=== PATIENT | female | born 1955 | race Caucasian/White ===

== ENCOUNTER 2022-03-24 17:01 | Inpatient (IN) | payer MEDICARE ==
[~2022-03-24] VITALS: Ht 165.1 cm; Wt 92.1 kg
[~2022-03-24 17:01] MED LIST: ACETAMINOPHEN500 M5 PO; ALDACTONE25 MG PO; AMBIEN10 M1 PO; CLONAZEPAM1 MG PO; COLCRYS0.6 M1 PO; GABAPENTIN800 MG PO; GOOD NEIGHBOR PH5 MG PO; KLOR-CON M2020 ME1 PO; LASIX40 MG PO; LEVOTHYROXINE200 MC3 PO; LEXAPRO10 MG PO; MASON NATURAL325 MG PO; MELOXICAM15 MG PO; MIRTAZAPINE15 M2 PO; NEXIUM20 M1 PO; PANTOPRAZOLE SO20 MG PO; ROPINIROLE HYD0.5 MG PO; TOPROL XL25 MG PO; TORSEMIDE20 MG PO; VITAMIN D3125 MCG PO
[2022-03-24 17:51] LABS: HEMATOCRIT 32.7 % (37.0-47.0); MEAN CELL VOLUME 110.8 fl (81.0-99.0); MEAN CORPUSCULAR HGB 34.9 pg (27.0-31.0); MEAN CORPUSCULAR HGB CONC 31.5 g/dl (33.0-37.0); MEAN PLATELET VOLUME 12.6 fl (9.6-12.3); NUCLEATED RED BLOOD CELL 0.3 10*3/uL (0.0-0.0); NUCLEATED RED BLOOD CELL 5.1 % (0.0-0.0); PLATELET COUNT AUTOMATED 185 10*3/uL (130-400); RED BLOOD COUNT 2.95 10*6/uL (4.10-5.10); RED CELL DISTRI WIDTH 18.4 % (0-14.5); WHITE BLOOD COUNT 5.3 10*3/uL (4.8-10.8)
[2022-03-24 18:09] LABS: CREATININE 2.26 mg/dL (0.55-1.02); POTASSIUM 5.2 mmol/L (3.5-5.1); TOTAL PROTEIN 8.2 gm/dL (6.4-8.2)
[2022-03-24 18:21] LABS: MANUAL DIFF REFLEX YES
[2022-03-24 18:36] LABS: PLATELET SUFFICIENCY NORMAL (NORMAL); TOTAL CELLS COUNTED 100 #CELLS
[2022-03-24 19:08] LABS: BILIRUBIN Negative (Negative); BLOOD 2+ (Negative); CLARITY Cloudy (Clear); COLOR Yellow (Yellow); GLUCOSE Negative (Negative); KETONE Negative (Negative); LEUKO ESTERASE 2+ (Negative); NITRITE Positive (Negative); PH 5.5 (4.5-8.0)
[2022-03-24 19:28] LABS: BACTERIA 4+; RBC 41-50 rbc/hpf (0-2); WBC 31-40 wbc/hpf (0-5)
[2022-03-24 20:02] VITALS: BP 129/72
[2022-03-25] VITALS (9 sets, daily range): BP systolic 102–165; BP diastolic 45–102
[2022-03-25 05:47] LABS: CREATININE 1.85 mg/dL (0.55-1.02)
[2022-03-25 06:01] LABS: FREE T4 0.47 ng/dl (0.76-1.46); TOTAL PROTEIN 7.3 gm/dL (6.4-8.2)
[2022-03-25 06:04] LABS: ARTERIAL BLOOD GAS PO2 254.7 (80-90)
[2022-03-25 06:18] LABS: ABG BASE EXCESS -12.7 mmol/L (-2.0-2.0); ARTERIAL BLOOD GAS PH 7.186 (7.35-7.45)
[2022-03-25 06:28] LABS: HEMATOCRIT 27.6 % (37.0-47.0); MEAN CELL VOLUME 111.3 fl (81.0-99.0); MEAN CORPUSCULAR HGB 38.3 pg (27.0-31.0); MEAN CORPUSCULAR HGB CONC 34.4 g/dl (33.0-37.0); MEAN PLATELET VOLUME 12.8 fl (9.6-12.3); NUCLEATED RED BLOOD CELL 0.3 10*3/uL (0.0-0.0); NUCLEATED RED BLOOD CELL 4.3 % (0.0-0.0); PLATELET COUNT AUTOMATED 172 10*3/uL (130-400); RED BLOOD COUNT 2.48 10*6/uL (4.10-5.10); RED CELL DISTRI WIDTH 18.3 % (0-14.5); WHITE BLOOD COUNT 6.1 10*3/uL (4.8-10.8)
[2022-03-25 06:51] LABS: MANUAL DIFF REFLEX YES
[2022-03-25 07:25] LABS: ATYPICAL LYMPHS 2 % (0-0); BURR CELLS FEW; OVALOCYTES FEW; POLYCHROMASIA SLIGHT; ROULEAUX SLIGHT; TOTAL CELLS COUNTED 100 #CELLS
[2022-03-25 07:26] LABS: DOHLE BODIES FEW; PLATELET SUFFICIENCY NORMAL (NORMAL); TOXIC GRANULATION SLIGHT
[2022-03-25 09:38] LABS: ACT PARTIAL THROMBO TIME 24.2 SECONDS (20.0-32.1); INTERNATIONAL NORM RATIO 1.4 (2.0-3.5)
[2022-03-25] MEDS ORDERED: ESOMEPRAZOLE MA20 MG PO (11:06)
[2022-03-25] MEDS ORDERED: CLONAZEPAM1 MG PO (11:06)
[2022-03-25] MEDS ORDERED: ZOLPIDEM10 MG PO (11:07)
[2022-03-25] MEDS ORDERED: LEVOTHYROXINE200 MC2 PO (11:07)
[2022-03-25] MEDS ORDERED: FAMOTIDINE20 M1 PO (11:08)
[2022-03-25] MEDS ORDERED: DICLOFENAC SOD100 G1 T (11:09)
[2022-03-25] MEDS ORDERED: MIRTAZAPINE15 M2 PO (11:09)
[2022-03-25] MEDS ORDERED: MELOXICAM15 MG PO (11:09)
[2022-03-25] MEDS ORDERED: ROPINIROLE HYD0.5 MG PO (11:10)
[2022-03-25] MEDS ORDERED: METOPROLOL SUCC25 M2 PO (11:12)
[2022-03-25] MEDS ORDERED: GABAPENTIN800 MG PO (11:13)
[2022-03-25 13:53] LABS: ARTERIAL BLOOD GAS PH 7.358 (7.35-7.45); ARTERIAL BLOOD GAS PO2 78.5 (80-90)
[2022-03-25 13:54] LABS: ABG BASE EXCESS -10.7 mmol/L (-2.0-2.0)
[2022-03-25 16:17] LABS: CREATININE 1.66 mg/dL (0.55-1.02)
[2022-03-26] VITALS: BP 119/60
[2022-03-26 04:00] VITALS: BP 118/43
[2022-03-26 08:00] VITALS: BP 128/53
[2022-03-26 08:23] LABS: ARTERIAL BLOOD GAS PH 7.416 (7.35-7.45); ARTERIAL BLOOD GAS PO2 68.4 (80-90)
[2022-03-26 08:25] LABS: ABG BASE EXCESS -6.1 mmol/L (-2.0-2.0)
[2022-03-26 08:29] LABS: HEMATOCRIT 24.2 % (37.0-47.0); MANUAL DIFF REFLEX YES; MEAN CELL VOLUME 112.6 fl (81.0-99.0); MEAN CORPUSCULAR HGB 37.2 pg (27.0-31.0); MEAN CORPUSCULAR HGB CONC 33.1 g/dl (33.0-37.0); MEAN PLATELET VOLUME 11.8 fl (9.6-12.3); NUCLEATED RED BLOOD CELL 0.2 10*3/uL (0.0-0.0); NUCLEATED RED BLOOD CELL 4.6 % (0.0-0.0); PLATELET COUNT AUTOMATED 146 10*3/uL (130-400); RED BLOOD COUNT 2.15 10*6/uL (4.10-5.10); RED CELL DISTRI WIDTH 19.9 % (0-14.5); WHITE BLOOD COUNT 4.4 10*3/uL (4.8-10.8)
[2022-03-26 08:53] LABS: ATYPICAL LYMPHS 1 % (0-0); CREATININE 1.37 mg/dL (0.55-1.02); PLATELET SUFFICIENCY NORMAL (NORMAL); POLYCHROMASIA SLIGHT; POTASSIUM 3.6 mmol/L (3.5-5.1); ROULEAUX SLIGHT; SCHISTOCYTES FEW; TOTAL CELLS COUNTED 100 #CELLS; TOTAL PROTEIN 6.1 gm/dL (6.4-8.2); TOXIC GRANULATION SLIGHT
[2022-03-26 10:06] LABS: HBSAG Negative (Negative); HEP B CORE AB, IGM Negative (Negative); HEPATITIS C ANTIBODY <0.1 (0.0-0.9)
[2022-03-26 12:00] VITALS: BP 118/47
[2022-03-26 16:00] VITALS: BP 100/45
[2022-03-26 20:00] VITALS: BP 99/51
[2022-03-27] VITALS: BP 113/83
[2022-03-27 04:00] VITALS: BP 105/46
[2022-03-27 05:29] LABS: CREATININE 1.14 mg/dL (0.55-1.02); POTASSIUM 3.9 mmol/L (3.5-5.1); TOTAL PROTEIN 5.9 gm/dL (6.4-8.2)
[2022-03-27 07:17] LABS: HEMATOCRIT 26.5 % (37.0-47.0); MEAN CELL VOLUME 110.9 fl (81.0-99.0); MEAN CORPUSCULAR HGB 33.1 pg (27.0-31.0); MEAN CORPUSCULAR HGB CONC 29.8 g/dl (33.0-37.0); MEAN PLATELET VOLUME 12.5 fl (9.6-12.3); NUCLEATED RED BLOOD CELL 0.1 10*3/uL (0.0-0.0); NUCLEATED RED BLOOD CELL 3.2 % (0.0-0.0); PLATELET COUNT AUTOMATED 142 10*3/uL (130-400); RED BLOOD COUNT 2.39 10*6/uL (4.10-5.10); RED CELL DISTRI WIDTH 18.1 % (0-14.5); WHITE BLOOD COUNT 3.8 10*3/uL (4.8-10.8)
[2022-03-27 07:26] LABS: MANUAL DIFF REFLEX YES
[2022-03-27 07:33] LABS: PLATELET SUFFICIENCY NORMAL (NORMAL); POLYCHROMASIA SLIGHT; TOTAL CELLS COUNTED 100 #CELLS
[2022-03-27 08:00] VITALS: BP 112/60
[2022-03-27 12:00] VITALS: BP 99/57
[2022-03-27 16:00] VITALS: BP 113/56
[2022-03-27 20:00] VITALS: BP 110/62
[2022-03-28] VITALS: BP 131/66
[2022-03-28 04:00] VITALS: BP 138/67
[2022-03-28 05:15] LABS: BUN 19 mg/dl (7-24); CHLORIDE 116 mmol/L (98-107); CREATININE 1.05 mg/dL (0.55-1.02); POTASSIUM 4.1 mmol/L (3.5-5.1); SGPT/ALT 174 U/L (12-78); SODIUM 144 mmol/L (136-145)
[2022-03-28 05:17] LABS: ALKALINE PHOSPHATASE 65 U/L (45-117); TOTAL PROTEIN 6.2 gm/dL (6.4-8.2)
[2022-03-28 06:36] LABS: ACT PARTIAL THROMBO TIME 46.8 SECONDS (20.0-32.1)
[2022-03-28 07:13] LABS: HEMATOCRIT 26.6 % (37.0-47.0); MEAN CELL VOLUME 109.5 fl (81.0-99.0); MEAN CORPUSCULAR HGB 32.9 pg (27.0-31.0); MEAN CORPUSCULAR HGB CONC 30.1 g/dl (33.0-37.0); MEAN PLATELET VOLUME 11.8 fl (9.6-12.3); NUCLEATED RED BLOOD CELL 0.1 10*3/uL (0.0-0.0); NUCLEATED RED BLOOD CELL 3.1 % (0.0-0.0); PLATELET COUNT AUTOMATED 143 10*3/uL (130-400); RED BLOOD COUNT 2.43 10*6/uL (4.10-5.10); WHITE BLOOD COUNT 2.3 10*3/uL (4.8-10.8)
[2022-03-28 07:16] LABS: MANUAL DIFF REFLEX YES
[2022-03-28 07:29] LABS: POLYCHROMASIA SLIGHT; TOTAL CELLS COUNTED 100 #CELLS
[2022-03-28 07:30] LABS: PLATELET SUFFICIENCY NORMAL (NORMAL); ROULEAUX SLIGHT
[2022-03-28 08:00] VITALS: BP 171/81
[2022-03-28 16:00] VITALS: BP 130/63
[2022-03-28 20:00] VITALS: BP 122/53
[2022-03-29] VITALS: BP 115/60
[2022-03-29 04:00] VITALS: BP 132/63
[2022-03-29 05:30] LABS: CREATININE 1.22 mg/dL (0.55-1.02); POTASSIUM 3.4 mmol/L (3.5-5.1); TOTAL PROTEIN 6.6 gm/dL (6.4-8.2)
[2022-03-29 07:23] LABS: MEAN CELL VOLUME 106.9 fl (81.0-99.0); MEAN CORPUSCULAR HGB 32.8 pg (27.0-31.0); MEAN CORPUSCULAR HGB CONC 30.7 g/dl (33.0-37.0); MEAN PLATELET VOLUME 11.9 fl (9.6-12.3); NUCLEATED RED BLOOD CELL 0.1 10*3/uL (0.0-0.0); NUCLEATED RED BLOOD CELL 2.3 % (0.0-0.0); PLATELET COUNT AUTOMATED 161 10*3/uL (130-400); RED BLOOD COUNT 2.62 10*6/uL (4.10-5.10); RED CELL DISTRI WIDTH 18.3 % (0-14.5); WHITE BLOOD COUNT 3.1 10*3/uL (4.8-10.8)
[2022-03-29 07:24] LABS: MANUAL DIFF REFLEX YES
[2022-03-29 07:51] LABS: ATYPICAL LYMPHS 3 % (0-0); TOTAL CELLS COUNTED 100 #CELLS
[2022-03-29 07:53] LABS: PLATELET SUFFICIENCY NORMAL (NORMAL); POLYCHROMASIA SLIGHT; SCHISTOCYTES FEW
[2022-03-29 07:54] LABS: OVALOCYTES FEW; ROULEAUX SLIGHT
[2022-03-29 08:00] VITALS: BP 141/65
[2022-03-29 12:00] VITALS: BP 94/54
[2022-03-29 16:00] VITALS: BP 109/55
[2022-03-29 20:00] VITALS: BP 95/49
[2022-03-30] VITALS: BP 92/58
[2022-03-30 04:00] VITALS: BP 96/50
[2022-03-30 05:28] LABS: CREATININE 1.52 mg/dL (0.55-1.02); POTASSIUM 3.7 mmol/L (3.5-5.1); TOTAL PROTEIN 6.6 gm/dL (6.4-8.2)
[2022-03-30 06:56] LABS: MEAN CELL VOLUME 107.8 fl (81.0-99.0); MEAN CORPUSCULAR HGB 32.7 pg (27.0-31.0); MEAN CORPUSCULAR HGB CONC 30.3 g/dl (33.0-37.0); MEAN PLATELET VOLUME 12.4 fl (9.6-12.3); NUCLEATED RED BLOOD CELL 0.1 10*3/uL (0.0-0.0); NUCLEATED RED BLOOD CELL 2.3 % (0.0-0.0); PLATELET COUNT AUTOMATED 159 10*3/uL (130-400); RED BLOOD COUNT 2.69 10*6/uL (4.10-5.10); RED CELL DISTRI WIDTH 18.5 % (0-14.5); WHITE BLOOD COUNT 2.6 10*3/uL (4.8-10.8)
[2022-03-30 06:59] LABS: MANUAL DIFF REFLEX YES
[2022-03-30 07:59] LABS: ATYPICAL LYMPHS 3 % (0-0); OVALOCYTES FEW; POLYCHROMASIA SLIGHT; TOTAL CELLS COUNTED 100 #CELLS
[2022-03-30 08:00] VITALS: BP 97/42
[2022-03-30 08:00] LABS: PLATELET SUFFICIENCY NORMAL (NORMAL); ROULEAUX SLIGHT; SCHISTOCYTES FEW
[2022-03-30 12:00] VITALS: BP 104/54
[2022-03-30 16:00] VITALS: BP 114/60
[2022-03-30 20:00] VITALS: BP 104/53
[2022-03-31] VITALS: BP 109/59
[2022-03-31 04:00] VITALS: BP 105/57
[2022-03-31 04:42] LABS: MEAN CELL VOLUME 108.5 fl (81.0-99.0); MEAN CORPUSCULAR HGB 34.1 pg (27.0-31.0); MEAN CORPUSCULAR HGB CONC 31.4 g/dl (33.0-37.0); NUCLEATED RED BLOOD CELL 0.1 10*3/uL (0.0-0.0); PLATELET COUNT AUTOMATED 143 10*3/uL (130-400); RED BLOOD COUNT 2.58 10*6/uL (4.10-5.10); RED CELL DISTRI WIDTH 18.5 % (0-14.5); WHITE BLOOD COUNT 2.3 10*3/uL (4.8-10.8)
[2022-03-31 05:04] LABS: CREATININE 1.77 mg/dL (0.55-1.02); POTASSIUM 3.5 mmol/L (3.5-5.1); TOTAL PROTEIN 6.4 gm/dL (6.4-8.2)
[2022-03-31 05:15] LABS: MANUAL DIFF REFLEX YES
[2022-03-31 05:19] LABS: ATYPICAL LYMPHS 5 % (0-0); PLATELET SUFFICIENCY LOW (NORMAL); POLYCHROMASIA SLIGHT; TOTAL CELLS COUNTED 100 #CELLS
[2022-03-31 08:00] VITALS: BP 110/52
[2022-03-31 12:00] VITALS: BP 94/53
[2022-03-31 14:08] LABS: ACID FAST SPEC PROCESSING Concentration (.)
[2022-03-31 16:00] VITALS: BP 100/63
[2022-03-31 20:00] VITALS: BP 110/61
[2022-04-01] VITALS: BP 106/59
[2022-04-01 04:00] VITALS: BP 112/61
[2022-04-01 05:57] LABS: CREATININE 1.69 mg/dL (0.55-1.02); POTASSIUM 3.2 mmol/L (3.5-5.1)
[2022-04-01 05:59] LABS: TOTAL PROTEIN 6.5 gm/dL (6.4-8.2)
[2022-04-01 07:24] LABS: HEMATOCRIT 29.5 % (37.0-47.0); MEAN CELL VOLUME 106.9 fl (81.0-99.0); MEAN CORPUSCULAR HGB 32.6 pg (27.0-31.0); MEAN CORPUSCULAR HGB CONC 30.5 g/dl (33.0-37.0); MEAN PLATELET VOLUME 12.3 fl (9.6-12.3); NUCLEATED RED BLOOD CELL 0.2 10*3/uL (0.0-0.0); NUCLEATED RED BLOOD CELL 3.9 % (0.0-0.0); PLATELET COUNT AUTOMATED 139 10*3/uL (130-400); RED BLOOD COUNT 2.76 10*6/uL (4.10-5.10); RED CELL DISTRI WIDTH 18.6 % (0-14.5); WHITE BLOOD COUNT 3.9 10*3/uL (4.8-10.8)
[2022-04-01 07:31] LABS: MANUAL DIFF REFLEX YES
[2022-04-01 07:46] LABS: TOTAL CELLS COUNTED 100 #CELLS
[2022-04-01 07:47] LABS: OVALOCYTES FEW; PLATELET SUFFICIENCY LOW (NORMAL); POLYCHROMASIA SLIGHT; STOMATOCYTE FEW
[2022-04-01 08:00] VITALS: BP 102/57
[2022-04-01 12:00] VITALS: BP 104/58
[2022-04-01 16:00] VITALS: BP 112/63
[2022-04-01 20:00] VITALS: BP 112/60
[2022-04-02] VITALS: BP 113/61
[2022-04-02 05:09] LABS: CREATININE 1.62 mg/dL (0.55-1.02); TOTAL PROTEIN 6.3 gm/dL (6.4-8.2)
[2022-04-02 06:32] LABS: HEMATOCRIT 29.5 % (37.0-47.0); MEAN CELL VOLUME 106.5 fl (81.0-99.0); MEAN CORPUSCULAR HGB 32.5 pg (27.0-31.0); MEAN CORPUSCULAR HGB CONC 30.5 g/dl (33.0-37.0); MEAN PLATELET VOLUME 12.8 fl (9.6-12.3); NUCLEATED RED BLOOD CELL 0.2 10*3/uL (0.0-0.0); NUCLEATED RED BLOOD CELL 5.9 % (0.0-0.0); PLATELET COUNT AUTOMATED 130 10*3/uL (130-400); RED BLOOD COUNT 2.77 10*6/uL (4.10-5.10); RED CELL DISTRI WIDTH 18.5 % (0-14.5); WHITE BLOOD COUNT 3.9 10*3/uL (4.8-10.8)
[2022-04-02 06:33] LABS: MANUAL DIFF REFLEX YES
[2022-04-02 08:00] VITALS: BP 102/17
[2022-04-02 08:13] LABS: ATYPICAL LYMPHS 2 % (0-0); TOTAL CELLS COUNTED 100 #CELLS
[2022-04-02 08:14] LABS: PLATELET SUFFICIENCY LOW (NORMAL); POLYCHROMASIA SLIGHT
[2022-04-02 12:00] VITALS: BP 115/61
[2022-04-02 16:00] VITALS: BP 125/64
[2022-04-02] MEDS ORDERED: SEPTDS PO (18:36)
[2022-04-02] MEDS ORDERED: DEXAMETHASONE6 MG PO (18:36)
[2022-04-02 20:00] VITALS: BP 119/60
[2022-04-03] VITALS: BP 108/60
[2022-04-03 05:58] LABS: CREATININE 1.5 mg/dL (0.55-1.02); POTASSIUM 3.5 mmol/L (3.5-5.1); TOTAL PROTEIN 6.1 gm/dL (6.4-8.2)
[2022-04-03 07:24] LABS: HEMATOCRIT 29.7 % (37.0-47.0); MEAN CELL VOLUME 109.2 fl (81.0-99.0); MEAN CORPUSCULAR HGB 33.1 pg (27.0-31.0); MEAN CORPUSCULAR HGB CONC 30.3 g/dl (33.0-37.0); MEAN PLATELET VOLUME 12.4 fl (9.6-12.3); NUCLEATED RED BLOOD CELL 0.2 10*3/uL (0.0-0.0); NUCLEATED RED BLOOD CELL 4.8 % (0.0-0.0); PLATELET COUNT AUTOMATED 126 10*3/uL (130-400); RED BLOOD COUNT 2.72 10*6/uL (4.10-5.10); RED CELL DISTRI WIDTH 19.2 % (0-14.5)
[2022-04-03 07:25] LABS: MANUAL DIFF REFLEX YES
[2022-04-03 08:00] VITALS: BP 103/67
[2022-04-03 08:08] LABS: PLATELET SUFFICIENCY LOW (NORMAL); POLYCHROMASIA SLIGHT; SCHISTOCYTES FEW; TOTAL CELLS COUNTED 100 #CELLS; TOXIC GRANULATION SLIGHT; VACUOLATION OF NEUTROPHILS SLIGHT
[2022-04-03 12:00] VITALS: BP 123/63
[2022-04-03 16:00] VITALS: BP 152/66
[2022-04-03 20:00] VITALS: BP 127/64
[2022-04-04] VITALS: BP 121/44
[2022-04-04 08:00] VITALS: BP 138/70
[2022-04-04 12:00] VITALS: BP 112/47
[2022-04-04 16:00] VITALS: BP 115/72
[2022-04-04 20:00] VITALS: BP 131/62
[2022-04-05] VITALS: BP 131/62
[2022-04-05 08:00] VITALS: BP 108/69; BP 112/51
[2022-04-05 12:00] VITALS: BP 133/63
[2022-04-05 13:58] LABS: CREATININE 2.17 mg/dL (0.55-1.02); POTASSIUM 3.6 mmol/L (3.5-5.1)
[2022-04-05] MEDS ORDERED: ZOLPIDEM10 MG PO (13:59)
[2022-04-05] MEDS ORDERED: GABAPENTIN400 MG PO (13:59)
[2022-04-05] MEDS ORDERED: LASIX20 MG PO ×2 (13:59)
[2022-04-05] MEDS ORDERED: XARELTO1 EACH PO (13:59)
[2022-04-05] MEDS ORDERED: CLONAZEPAM1 MG PO (13:59)
[2022-04-05 16:00] VITALS: BP 120/89
== END 2022-04-05 17:22 | DRG 871 ==
LOC: ED 17:01 → ICCU 22:23 → 4E 22:23 → EDHOLD 22:23 → 4E 03-25 00:57 → ICCU 03-25 05:45 → 4E 04-02 17:43
PROVIDERS: Emergency Medicine; Family Medicine; Internal Medicine; Internal Medicine Critical Care Medicine; Student in an Organized Health Care Education/Training Program; ADMIT Internal Medicine; ATTEND Internal Medicine
PROC: 5A09357 Assistance with Respiratory Ventilation, Less than 24 Consecutive Hours, Continuous Positive Airway Pressure (ICD-10-PCS; 2022-03-25)
PROC: 02HV33Z Insertion of Infusion Device into Superior Vena Cava, Percutaneous Approach (ICD-10-PCS; principal; 2022-03-27)
PROC: B548ZZA Ultrasonography of Superior Vena Cava, Guidance (ICD-10-PCS; 2022-03-27)
PROC: XW033E5 Introduction of Remdesivir Anti-infective into Peripheral Vein, Percutaneous Approach, New Technology Group 5 (ICD-10-PCS; 2022-03-27)
PROC: 0BC18ZZ Extirpation of Matter from Trachea, Via Natural or Artificial Opening Endoscopic (ICD-10-PCS; 2022-03-30)
PROC: 0BC98ZZ Extirpation of Matter from Lingula Bronchus, Via Natural or Artificial Opening Endoscopic (ICD-10-PCS; 2022-03-30)
PROC: 0BC48ZZ Extirpation of Matter from Right Upper Lobe Bronchus, Via Natural or Artificial Opening Endoscopic (ICD-10-PCS; 2022-03-30)
PROC: 0BC88ZZ Extirpation of Matter from Left Upper Lobe Bronchus, Via Natural or Artificial Opening Endoscopic (ICD-10-PCS; 2022-03-30)
PROC: 0BC58ZZ Extirpation of Matter from Right Middle Lobe Bronchus, Via Natural or Artificial Opening Endoscopic (ICD-10-PCS; 2022-03-30)
PROC: 0BC38ZZ Extirpation of Matter from Right Main Bronchus, Via Natural or Artificial Opening Endoscopic (ICD-10-PCS; 2022-03-30)
PROC: 0BC78ZZ Extirpation of Matter from Left Main Bronchus, Via Natural or Artificial Opening Endoscopic (ICD-10-PCS; 2022-03-30)
PROC: 0BC68ZZ Extirpation of Matter from Right Lower Lobe Bronchus, Via Natural or Artificial Opening Endoscopic (ICD-10-PCS; 2022-03-30)
PROC: 0BCB8ZZ Extirpation of Matter from Left Lower Lobe Bronchus, Via Natural or Artificial Opening Endoscopic (ICD-10-PCS; 2022-03-30)
DX: A41.9 Sepsis, unspecified organism (principal); G93.41 Metabolic encephalopathy; U07.1 COVID-19; S72.009A Fracture of unspecified part of neck of unspecified femur, initial encounter for closed fracture; J96.01 Acute respiratory failure with hypoxia; I26.99 Other pulmonary embolism without acute cor pulmonale; J15.6 Pneumonia due to other Gram-negative bacteria; N39.0 Urinary tract infection, site not specified; E87.20 Acidosis, unspecified; N17.9 Acute kidney failure, unspecified; M62.82 Rhabdomyolysis; I50.32 Chronic diastolic (congestive) heart failure; I82.412 Acute embolism and thrombosis of left femoral vein; I82.432 Acute embolism and thrombosis of left popliteal vein; I82.452 Acute embolism and thrombosis of left peroneal vein; I82.442 Acute embolism and thrombosis of left tibial vein; L89.320 Pressure ulcer of left buttock, unstageable; L89.310 Pressure ulcer of right buttock, unstageable; R74.01 Elevation of levels of liver transaminase levels; R31.9 Hematuria, unspecified; R65.20 Severe sepsis without septic shock; D53.9 Nutritional anemia, unspecified; R73.9 Hyperglycemia, unspecified; E78.5 Hyperlipidemia, unspecified; E87.8 Other disorders of electrolyte and fluid balance, not elsewhere classified; E03.9 Hypothyroidism, unspecified; G62.9 Polyneuropathy, unspecified; S30.0XXA Contusion of lower back and pelvis, initial encounter; S90.32XA Contusion of left foot, initial encounter; X58.XXXA Exposure to other specified factors, initial encounter; B96.20 Unspecified Escherichia coli [E. coli] as the cause of diseases classified elsewhere; L89.122 Pressure ulcer of left upper back, stage 2; E87.5 Hyperkalemia; R41.0 Disorientation, unspecified; A41.89 Other specified sepsis; D72.821 Monocytosis (symptomatic); J98.09 Other diseases of bronchus, not elsewhere classified; R53.81 Other malaise; F32.9 Major depressive disorder, single episode, unspecified; L89.326 Pressure-induced deep tissue damage of left buttock; L89.316 Pressure-induced deep tissue damage of right buttock; L89.146 Pressure-induced deep tissue damage of left lower back; L89.626 Pressure-induced deep tissue damage of left heel; Z68.33 Body mass index [BMI] 33.0-33.9, adult; Y93.89 Activity, other specified; Y92.89 Other specified places as the place of occurrence of the external cause; Y99.8 Other external cause status

== ENCOUNTER → 2022-04-21 | Outpatient (CLI) | payer MEDICARE ==
[~2022-04-21] MED LIST changes: -ACETAMINOPHEN500 M5 PO; -ALDACTONE25 MG PO; -AMBIEN10 M1 PO; -COLCRYS0.6 M1 PO; +DEXAMETHASONE6 MG PO; +DICLOFENAC SOD100 G1 T; +ESOMEPRAZOLE MA20 MG PO; +FAMOTIDINE20 M1 PO; +GABAPENTIN400 MG PO; -GOOD NEIGHBOR PH5 MG PO; -KLOR-CON M2020 ME1 PO; +LASIX20 MG PO; -LASIX40 MG PO; +LEVOTHYROXINE200 MC2 PO; -LEVOTHYROXINE200 MC3 PO; -LEXAPRO10 MG PO; -MASON NATURAL325 MG PO; +METOPROLOL SUCC25 M2 PO; -NEXIUM20 M1 PO; -PANTOPRAZOLE SO20 MG PO; +SEPTDS PO; -TOPROL XL25 MG PO; -TORSEMIDE20 MG PO; -VITAMIN D3125 MCG PO; +XARELTO1 EACH PO; +ZOLPIDEM10 MG PO
== END | disposition home or self-care (01) ==
LOC: WOUNDCARE 00:29
PROVIDERS: ATTEND Nurse Practitioner Family
DX: L89.153 Pressure ulcer of sacral region, stage 3 (principal); L89.626 Pressure-induced deep tissue damage of left heel; L89.323 Pressure ulcer of left buttock, stage 3; L89.893 Pressure ulcer of other site, stage 3; I50.20 Unspecified systolic (congestive) heart failure; M79.2 Neuralgia and neuritis, unspecified; G93.41 Metabolic encephalopathy; Z86.718 Personal history of other venous thrombosis and embolism

== ENCOUNTER → 2022-04-28 | Outpatient (CLI) | payer MEDICARE ==
[~2022-04-28] MED LIST changes: +ACETAMINOPHEN500 M5 PO; +ALDACTONE25 MG PO; +AMBIEN10 M1 PO; +COLCRYS0.6 M1 PO; +GOOD NEIGHBOR PH5 MG PO; +KLOR-CON M2020 ME1 PO; +LASIX40 MG PO; +LEVOTHYROXINE200 MC3 PO; +LEXAPRO10 MG PO; +MASON NATURAL325 MG PO; +NEXIUM20 M1 PO; +PANTOPRAZOLE SO20 MG PO; +TOPROL XL25 MG PO; +TORSEMIDE20 MG PO; +VITAMIN D3125 MCG PO
== END | disposition home or self-care (01) ==
LOC: WOUNDCARE 08:10
PROVIDERS: ATTEND Nurse Practitioner Family
DX: L89.153 Pressure ulcer of sacral region, stage 3 (principal); L89.323 Pressure ulcer of left buttock, stage 3; L89.893 Pressure ulcer of other site, stage 3; L89.626 Pressure-induced deep tissue damage of left heel; I50.20 Unspecified systolic (congestive) heart failure; G93.41 Metabolic encephalopathy; M79.2 Neuralgia and neuritis, unspecified; Z86.718 Personal history of other venous thrombosis and embolism

== ENCOUNTER → 2022-05-12 | Outpatient (CLI) | payer MEDICARE | END | disposition home or self-care (01) | LOC: WOUNDCARE 01:38 | PROVIDERS: ATTEND Nurse Practitioner Family | DX: L89.153 Pressure ulcer of sacral region, stage 3 (principal); L89.626 Pressure-induced deep tissue damage of left heel; L89.323 Pressure ulcer of left buttock, stage 3; L89.893 Pressure ulcer of other site, stage 3; I50.20 Unspecified systolic (congestive) heart failure; M79.2 Neuralgia and neuritis, unspecified; G93.41 Metabolic encephalopathy; Z86.718 Personal history of other venous thrombosis and embolism ==

== ENCOUNTER → 2022-05-25 | Outpatient (CLI) | payer MEDICARE | END | disposition home or self-care (01) | LOC: WOUNDCARE 04:52 | PROVIDERS: ATTEND Nurse Practitioner Family | DX: L89.153 Pressure ulcer of sacral region, stage 3 (principal); L89.626 Pressure-induced deep tissue damage of left heel; L89.323 Pressure ulcer of left buttock, stage 3; L89.893 Pressure ulcer of other site, stage 3; I50.20 Unspecified systolic (congestive) heart failure; I50.9 Heart failure, unspecified; M79.2 Neuralgia and neuritis, unspecified; G93.41 Metabolic encephalopathy; Z86.718 Personal history of other venous thrombosis and embolism ==

== ENCOUNTER → 2022-05-29 | Outpatient (CLI) | payer MEDICARE | END | disposition home or self-care (01) | LOC: CT 05-26 14:00 | PROVIDERS: ATTEND Nurse Practitioner Family | DX: M19.072 Primary osteoarthritis, left ankle and foot (principal); M16.11 Unilateral primary osteoarthritis, right hip; M20.12 Hallux valgus (acquired), left foot; L89.893 Pressure ulcer of other site, stage 3; Z90.49 Acquired absence of other specified parts of digestive tract ==

== ENCOUNTER → 2022-06-08 | Outpatient (CLI) | payer MEDICARE | END | disposition home or self-care (01) | LOC: WOUNDCARE 00:37 | PROVIDERS: ATTEND Nurse Practitioner Family | DX: L89.153 Pressure ulcer of sacral region, stage 3 (principal); L89.323 Pressure ulcer of left buttock, stage 3; L89.626 Pressure-induced deep tissue damage of left heel; L89.893 Pressure ulcer of other site, stage 3; I50.20 Unspecified systolic (congestive) heart failure; M79.2 Neuralgia and neuritis, unspecified; G93.41 Metabolic encephalopathy; Z86.718 Personal history of other venous thrombosis and embolism ==

== ENCOUNTER → 2022-06-30 | Outpatient (CLI) | payer MEDICARE | END | disposition home or self-care (01) | LOC: WOUNDCARE 02:47 | PROVIDERS: ATTEND Nurse Practitioner Family | DX: L89.153 Pressure ulcer of sacral region, stage 3 (principal); L89.626 Pressure-induced deep tissue damage of left heel; L89.893 Pressure ulcer of other site, stage 3; I50.20 Unspecified systolic (congestive) heart failure; M79.2 Neuralgia and neuritis, unspecified; G93.41 Metabolic encephalopathy; Z86.718 Personal history of other venous thrombosis and embolism ==

== ENCOUNTER → 2022-07-18 | Outpatient (CLI) | payer MEDICARE ==
[2022-07-18 10:23] LABS: HEMATOCRIT 35.9 % (37.0-47.0); MEAN CELL VOLUME 109.8 fl (81.0-99.0); MEAN CORPUSCULAR HGB CONC 30.1 g/dl (33.0-37.0); MEAN PLATELET VOLUME 10.7 fl (9.6-12.3); PLATELET COUNT AUTOMATED 126 10*3/uL (130-400); RED BLOOD COUNT 3.27 10*6/uL (4.10-5.10); RED CELL DISTRI WIDTH 14.7 % (0-14.5); WHITE BLOOD COUNT 4.8 10*3/uL (4.8-10.8)
[2022-07-18 10:25] LABS: MANUAL DIFF REFLEX YES
[2022-07-18 10:43] LABS: ALKALINE PHOSPHATASE 66 U/L (46-116); BUN 19 mg/dl (9-23); CHLORIDE 105 mmol/L (98-107); CHOLESTEROL 149 mg/dL (<200); LDL CHOLESTEROL 100 mg/dL (9-159); POTASSIUM 3.9 mmol/L (3.4-5.1); SGPT/ALT 10 U/L (10-49); TRIGLYCERIDES 90 mg/dl (<150)
[2022-07-18 11:28] LABS: TOTAL CELLS COUNTED 100 #CELLS
[2022-07-18 11:29] LABS: PLATELET SUFFICIENCY LOW (NORMAL); POLYCHROMASIA SLIGHT; TARGET CELLS FEW
== END | disposition home or self-care (01) ==
LOC: WOUNDCARE 02:37 → LAB 02:37 → WOUNDCARE 03:37
PROVIDERS: Internal Medicine; ATTEND Nurse Practitioner Family
DX: L89.626 Pressure-induced deep tissue damage of left heel (principal); L89.893 Pressure ulcer of other site, stage 3; L89.153 Pressure ulcer of sacral region, stage 3; E11.22 Type 2 diabetes mellitus with diabetic chronic kidney disease; N18.30 Chronic kidney disease, stage 3 unspecified; I50.20 Unspecified systolic (congestive) heart failure; E78.2 Mixed hyperlipidemia; G93.41 Metabolic encephalopathy; M79.2 Neuralgia and neuritis, unspecified; Z86.718 Personal history of other venous thrombosis and embolism

== ENCOUNTER → 2022-08-22 | Outpatient (CLI) | payer MEDICARE | END | disposition home or self-care (01) | LOC: RAD 00:43 → WOUNDCARE 00:43 | PROVIDERS: ATTEND Nurse Practitioner Family | DX: L89.893 Pressure ulcer of other site, stage 3 (principal); L89.153 Pressure ulcer of sacral region, stage 3; L89.621 Pressure ulcer of left heel, stage 1; I50.20 Unspecified systolic (congestive) heart failure; G93.41 Metabolic encephalopathy; M79.2 Neuralgia and neuritis, unspecified; M47.817 Spondylosis without myelopathy or radiculopathy, lumbosacral region; Z86.718 Personal history of other venous thrombosis and embolism ==

== ENCOUNTER → 2022-09-05 | Outpatient (CLI) | payer MEDICARE | END | disposition home or self-care (01) | LOC: WOUNDCARE 01:22 | PROVIDERS: ATTEND Nurse Practitioner Family | DX: L89.153 Pressure ulcer of sacral region, stage 3 (principal); L89.621 Pressure ulcer of left heel, stage 1; I50.20 Unspecified systolic (congestive) heart failure; M79.2 Neuralgia and neuritis, unspecified; G93.41 Metabolic encephalopathy; Z86.718 Personal history of other venous thrombosis and embolism ==

== ENCOUNTER → 2022-10-30 | Outpatient (CLI) | payer MEDICARE ==
[2022-10-30 10:57] LABS: HEMATOCRIT 36.1 % (37.0-47.0); MEAN CELL VOLUME 105.9 fl (81.0-99.0); MEAN CORPUSCULAR HGB 32.6 pg (27.0-31.0); MEAN CORPUSCULAR HGB CONC 30.7 g/dl (33.0-37.0); MEAN PLATELET VOLUME 10.9 fl (9.6-12.3); PLATELET COUNT AUTOMATED 117 10*3/uL (130-400); RED BLOOD COUNT 3.41 10*6/uL (4.10-5.10); RED CELL DISTRI WIDTH 15.2 % (0-14.5); WHITE BLOOD COUNT 3.6 10*3/uL (4.8-10.8)
[2022-10-30 11:01] LABS: MANUAL DIFF REFLEX YES
[2022-10-30 11:16] LABS: BILIRUBIN Negative (Negative); BLOOD 2+ (Negative); CLARITY Cloudy (Clear); COLOR Yellow (Yellow); GLUCOSE Negative (Negative); KETONE Negative (Negative); LEUKO ESTERASE 3+ (Negative); NITRITE Positive (Negative); PH 5.5 (4.5-8.0)
[2022-10-30 11:21] LABS: URINE CREATININE RANDOM 93.4 mg/dL
[2022-10-30 11:25] LABS: POTASSIUM 4.2 mmol/L (3.4-5.1)
[2022-10-30 11:30] LABS: ATYPICAL LYMPHS 2 % (0-0); BASOPHILS 1 % (0-1); PLATELET SUFFICIENCY LOW (NORMAL); POLYCHROMASIA SLIGHT; TOTAL CELLS COUNTED 100 #CELLS
[2022-10-30 11:31] LABS: ROULEAUX SLIGHT; TARGET CELLS FEW
[2022-10-30 12:20] LABS: BACTERIA 4+; RBC 21-30 rbc/hpf (0-2); WBC TNTC wbc/hpf (0-5)
== END | disposition home or self-care (01) ==
LOC: LAB 10:26
PROVIDERS: ATTEND Internal Medicine Nephrology
DX: N18.4 Chronic kidney disease, stage 4 (severe) (principal); N25.81 Secondary hyperparathyroidism of renal origin

== ENCOUNTER → 2022-11-14 | Outpatient (CLI) | payer MEDICARE | END | disposition home or self-care (01) | LOC: WOUNDCARE 02:27 | PROVIDERS: ATTEND Nurse Practitioner Family | DX: L89.322 Pressure ulcer of left buttock, stage 2 (principal); L97.822 Non-pressure chronic ulcer of other part of left lower leg with fat layer exposed; I50.20 Unspecified systolic (congestive) heart failure; M79.2 Neuralgia and neuritis, unspecified; Z86.718 Personal history of other venous thrombosis and embolism; Z90.710 Acquired absence of both cervix and uterus; Z96.651 Presence of right artificial knee joint ==

== ENCOUNTER → 2022-11-22 | Outpatient (CLI) | payer MEDICARE | END | disposition home or self-care (01) | LOC: WOUNDCARE 03:09 | PROVIDERS: ATTEND Nurse Practitioner Family | DX: L89.322 Pressure ulcer of left buttock, stage 2 (principal); L97.822 Non-pressure chronic ulcer of other part of left lower leg with fat layer exposed; I50.20 Unspecified systolic (congestive) heart failure; M79.2 Neuralgia and neuritis, unspecified; Z86.718 Personal history of other venous thrombosis and embolism; Z90.710 Acquired absence of both cervix and uterus; Z96.651 Presence of right artificial knee joint ==

== ENCOUNTER 2022-12-06 11:46 | Emergency (ER) | payer MEDICARE ==
[~2022-12-06] VITALS: Wt 69.9 kg
[2022-12-06] MEDS ORDERED: DECADRON4 MG PO (14:14)
[2022-12-07] MEDS ORDERED: XARE20MG PO (14:04)
[2022-12-08] MEDS ORDERED: SLEEP AID25 M1 PO (14:15)
== END 2022-12-06 14:18 | disposition home or self-care (01) ==
LOC: ED 11:46
DX: M54.12 Radiculopathy, cervical region (principal); M25.512 Pain in left shoulder; Z88.8 Allergy status to other drugs, medicaments and biological substances; Z96.651 Presence of right artificial knee joint; Z90.49 Acquired absence of other specified parts of digestive tract

== ENCOUNTER → 2023-01-12 | Outpatient (CLI) | payer MEDICARE ==
[~2023-01-12] MED LIST changes: +DECADRON4 MG PO; +ERTAPENEM1 GM IV; +SLEEP AID25 M1 PO; +XARE20MG PO
== END | disposition home or self-care (01) ==
LOC: WOUNDCARE 01:44
PROVIDERS: ATTEND Nurse Practitioner Family
DX: L89.322 Pressure ulcer of left buttock, stage 2 (principal); L89.150 Pressure ulcer of sacral region, unstageable; T24.011A Burn of unspecified degree of right thigh, initial encounter; T31.0 Burns involving less than 10% of body surface; M79.2 Neuralgia and neuritis, unspecified; I50.20 Unspecified systolic (congestive) heart failure; R32 Unspecified urinary incontinence; Z90.710 Acquired absence of both cervix and uterus; Z86.718 Personal history of other venous thrombosis and embolism; Z96.651 Presence of right artificial knee joint; X08.8XXA Exposure to other specified smoke, fire and flames, initial encounter; Y93.89 Activity, other specified; Y92.89 Other specified places as the place of occurrence of the external cause; Y99.8 Other external cause status

== ENCOUNTER → 2023-01-19 | Outpatient (CLI) | payer MEDICARE | END | disposition home or self-care (01) | LOC: WOUNDCARE 01:29 | PROVIDERS: ATTEND Nurse Practitioner Family | DX: T24.312D Burn of third degree of left thigh, subsequent encounter (principal); T31.0 Burns involving less than 10% of body surface; L89.322 Pressure ulcer of left buttock, stage 2; L89.150 Pressure ulcer of sacral region, unstageable; M79.2 Neuralgia and neuritis, unspecified; I50.20 Unspecified systolic (congestive) heart failure; R32 Unspecified urinary incontinence; Z90.710 Acquired absence of both cervix and uterus; Z86.718 Personal history of other venous thrombosis and embolism; Z96.651 Presence of right artificial knee joint; X08.8XXD Exposure to other specified smoke, fire and flames, subsequent encounter ==

== ENCOUNTER → 2023-01-26 | Outpatient (CLI) | payer MEDICARE | END | disposition home or self-care (01) | LOC: WOUNDCARE 01:46 | PROVIDERS: ATTEND Nurse Practitioner Family | DX: L89.150 Pressure ulcer of sacral region, unstageable (principal); L89.322 Pressure ulcer of left buttock, stage 2; T24.011D Burn of unspecified degree of right thigh, subsequent encounter; T31.0 Burns involving less than 10% of body surface; I50.20 Unspecified systolic (congestive) heart failure; R32 Unspecified urinary incontinence; M79.2 Neuralgia and neuritis, unspecified; Z90.710 Acquired absence of both cervix and uterus; Z96.651 Presence of right artificial knee joint; Z86.718 Personal history of other venous thrombosis and embolism ==

== ENCOUNTER → 2023-02-06 | Outpatient (CLI) | payer MEDICARE ==
[2023-02-06 15:25] LABS: HEMATOCRIT 32.5 % (37.0-47.0); MEAN CELL VOLUME 108.7 fl (81.0-99.0); MEAN CORPUSCULAR HGB 33.1 pg (27.0-31.0); MEAN CORPUSCULAR HGB CONC 30.5 g/dl (33.0-37.0); PLATELET COUNT AUTOMATED 133 10*3/uL (130-400); RED BLOOD COUNT 2.99 10*6/uL (4.10-5.10); WHITE BLOOD COUNT 3.9 10*3/uL (4.8-10.8)
[2023-02-06 15:43] LABS: BILIRUBIN Negative (Negative); BLOOD 2+ (Negative); CLARITY Turbid (Clear); COLOR Yellow (Yellow); GLUCOSE Negative (Negative); KETONE Trace (Negative); LEUKO ESTERASE 3+ (Negative); NITRITE Negative (Negative)
[2023-02-06 15:52] LABS: BACTERIA 2+; RBC 16-20 rbc/hpf (0-2); WBC 31-40 wbc/hpf (0-5)
[2023-02-06 15:56] LABS: ALKALINE PHOSPHATASE 96 U/L (46-116); BUN 10 mg/dl (9-23); CHLORIDE 108 mmol/L (98-107); POTASSIUM 3.1 mmol/L (3.4-5.1); SGPT/ALT < 7 U/L (10-49); TOTAL PROTEIN 6.6 gm/dL (6.0-8.0)
[2023-02-06 16:13] LABS: BASOPHILS 1 % (0-1); MANUAL DIFF REFLEX YES; PLATELET SUFFICIENCY NORMAL (NORMAL); TOTAL CELLS COUNTED 100 #CELLS
== END | disposition home or self-care (01) ==
LOC: WOUNDCARE 01:07 → LAB 01:12 → WOUNDCARE 01:12
PROVIDERS: Internal Medicine; ATTEND Nurse Practitioner Family
DX: L97.821 Non-pressure chronic ulcer of other part of left lower leg limited to breakdown of skin (principal); L89.150 Pressure ulcer of sacral region, unstageable; L89.322 Pressure ulcer of left buttock, stage 2; T24.011D Burn of unspecified degree of right thigh, subsequent encounter; M79.2 Neuralgia and neuritis, unspecified; I50.20 Unspecified systolic (congestive) heart failure; R73.09 Other abnormal glucose; R32 Unspecified urinary incontinence; Z90.710 Acquired absence of both cervix and uterus; Z96.651 Presence of right artificial knee joint; Z86.718 Personal history of other venous thrombosis and embolism; X08.8XXD Exposure to other specified smoke, fire and flames, subsequent encounter

== ENCOUNTER → 2023-02-13 | Outpatient (CLI) | payer MEDICARE | END | disposition home or self-care (01) | LOC: US 03:50 | PROVIDERS: ATTEND Nurse Practitioner Family | DX: R60.9 Edema, unspecified (principal); Z86.718 Personal history of other venous thrombosis and embolism; I73.9 Peripheral vascular disease, unspecified ==

== ENCOUNTER → 2023-02-20 | Outpatient (CLI) | payer MEDICARE | END | disposition home or self-care (01) | LOC: WOUNDCARE 00:54 | PROVIDERS: ATTEND Nurse Practitioner Family | DX: L97.821 Non-pressure chronic ulcer of other part of left lower leg limited to breakdown of skin (principal); T24.011D Burn of unspecified degree of right thigh, subsequent encounter; T31.0 Burns involving less than 10% of body surface; L89.150 Pressure ulcer of sacral region, unstageable; L89.322 Pressure ulcer of left buttock, stage 2; M79.2 Neuralgia and neuritis, unspecified; I50.20 Unspecified systolic (congestive) heart failure; R32 Unspecified urinary incontinence; Z86.718 Personal history of other venous thrombosis and embolism; Z90.710 Acquired absence of both cervix and uterus; Z96.651 Presence of right artificial knee joint; X08.8XXD Exposure to other specified smoke, fire and flames, subsequent encounter ==

== ENCOUNTER → 2023-03-27 | Outpatient (CLI) | payer MEDICARE | END | disposition home or self-care (01) | LOC: WOUNDCARE 04:25 | PROVIDERS: ATTEND Nurse Practitioner Family | DX: L89.152 Pressure ulcer of sacral region, stage 2 (principal); L89.322 Pressure ulcer of left buttock, stage 2; T24.011D Burn of unspecified degree of right thigh, subsequent encounter; T31.0 Burns involving less than 10% of body surface; M79.2 Neuralgia and neuritis, unspecified; I50.20 Unspecified systolic (congestive) heart failure; R32 Unspecified urinary incontinence; Z86.718 Personal history of other venous thrombosis and embolism; Z90.710 Acquired absence of both cervix and uterus; Z96.651 Presence of right artificial knee joint; X08.8XXD Exposure to other specified smoke, fire and flames, subsequent encounter ==

== ENCOUNTER → 2023-04-09 | Outpatient (CLI) | payer MEDICARE | END | disposition home or self-care (01) | LOC: WOUNDCARE 00:56 | PROVIDERS: ATTEND Nurse Practitioner Primary Care | DX: L89.152 Pressure ulcer of sacral region, stage 2 (principal); L89.322 Pressure ulcer of left buttock, stage 2; M79.2 Neuralgia and neuritis, unspecified; I50.20 Unspecified systolic (congestive) heart failure; R32 Unspecified urinary incontinence; Z90.710 Acquired absence of both cervix and uterus; Z86.718 Personal history of other venous thrombosis and embolism; Z96.651 Presence of right artificial knee joint ==

== ENCOUNTER → 2023-04-12 | Outpatient (CLI) | payer MEDICARE ==
[2023-04-12 11:45] LABS: BILIRUBIN Negative (Negative); BLOOD Trace-Lysed (Negative); CLARITY Clear (Clear); COLOR Yellow (Yellow); GLUCOSE Negative (Negative); KETONE Negative (Negative); LEUKO ESTERASE 1+ (Negative); NITRITE Negative (Negative); UROBILINOGEN 0.2 E.U./dl (0.0-1.0)
[2023-04-12 12:20] LABS: BACTERIA 4+; EPITHELIAL CELLS 0-2
== END | disposition home or self-care (01) ==
LOC: LAB 11:15
PROVIDERS: ATTEND Internal Medicine
DX: N39.0 Urinary tract infection, site not specified (principal)

== ENCOUNTER → 2023-04-23 | Outpatient (CLI) | payer MEDICARE | END | disposition home or self-care (01) | LOC: WOUNDCARE 00:26 | PROVIDERS: ATTEND Nurse Practitioner Family | DX: L89.152 Pressure ulcer of sacral region, stage 2 (principal); L89.322 Pressure ulcer of left buttock, stage 2; M79.2 Neuralgia and neuritis, unspecified; I50.20 Unspecified systolic (congestive) heart failure; N18.9 Chronic kidney disease, unspecified; R32 Unspecified urinary incontinence; Z86.718 Personal history of other venous thrombosis and embolism; Z90.710 Acquired absence of both cervix and uterus; Z96.651 Presence of right artificial knee joint ==

== ENCOUNTER → 2023-05-07 | Outpatient (CLI) | payer MEDICARE | END | disposition home or self-care (01) | LOC: WOUNDCARE 02:05 | PROVIDERS: ATTEND Nurse Practitioner Family | DX: L89.322 Pressure ulcer of left buttock, stage 2 (principal); L89.152 Pressure ulcer of sacral region, stage 2; I50.20 Unspecified systolic (congestive) heart failure; R32 Unspecified urinary incontinence; M79.2 Neuralgia and neuritis, unspecified; Z96.651 Presence of right artificial knee joint; Z86.718 Personal history of other venous thrombosis and embolism; Z90.710 Acquired absence of both cervix and uterus ==

== ENCOUNTER → 2023-06-22 | Outpatient (CLI) | payer OTHER ==
[2023-06-22 11:40] LABS: HEMATOCRIT 32.1 % (37.0-47.0); MEAN CELL VOLUME 104.6 fl (81.0-99.0); MEAN CORPUSCULAR HGB 29.3 pg (27.0-31.0); MEAN PLATELET VOLUME 11.9 fl (9.6-12.3); PLATELET COUNT AUTOMATED 80 10*3/uL (130-400); RED BLOOD COUNT 3.07 10*6/uL (4.10-5.10); RED CELL DISTRI WIDTH 17.5 % (0-14.5); WHITE BLOOD COUNT 2.8 10*3/uL (4.8-10.8)
[2023-06-22 11:44] LABS: MANUAL DIFF REFLEX YES
[2023-06-22 11:50] LABS: BILIRUBIN Negative (Negative); BLOOD 3+ (Negative); CLARITY Cloudy (Clear); COLOR Yellow (Yellow); GLUCOSE Negative (Negative); KETONE Negative (Negative); LEUKO ESTERASE Negative (Negative); NITRITE Negative (Negative); PH 5.5 (4.5-8.0); SPECIFIC GRAVITY 1.025 (1.001-1.030); UROBILINOGEN 0.2 E.U./dl (0.0-1.0)
[2023-06-22 12:03] LABS: POTASSIUM 4.4 mmol/L (3.4-5.1); TOTAL PROTEIN 6.8 gm/dL (6.0-8.0)
[2023-06-22 12:21] LABS: BACTERIA 3+; RBC 21-30 rbc/hpf (0-2)
[2023-06-22 13:10] LABS: POLYCHROMASIA SLIGHT; TOTAL CELLS COUNTED 100 #CELLS
[2023-06-22 13:11] LABS: PLATELET SUFFICIENCY LOW (NORMAL)
== END | disposition home or self-care (01) ==
LOC: WOUNDCARE 00:42 → LAB 00:42 → WOUNDCARE 13:51
PROVIDERS: Urology; ATTEND Nurse Practitioner Family
DX: L89.323 Pressure ulcer of left buttock, stage 3 (principal); L89.313 Pressure ulcer of right buttock, stage 3; R31.9 Hematuria, unspecified; R32 Unspecified urinary incontinence; I50.20 Unspecified systolic (congestive) heart failure; G62.9 Polyneuropathy, unspecified; Z86.718 Personal history of other venous thrombosis and embolism; Z90.710 Acquired absence of both cervix and uterus

== ENCOUNTER 2023-07-13 13:35 | Emergency (ER) | payer OTHER ==
[~2023-07-13] VITALS: Ht 170.1 cm; Wt 74.4 kg
[2023-07-13 14:14] LABS: HEMATOCRIT 32.5 % (37.0-47.0); MEAN CELL VOLUME 103.2 fl (81.0-99.0); MEAN CORPUSCULAR HGB 30.2 pg (27.0-31.0); MEAN CORPUSCULAR HGB CONC 29.2 g/dl (33.0-37.0); MEAN PLATELET VOLUME 11.7 fl (9.6-12.3); PLATELET COUNT AUTOMATED 94 10*3/uL (130-400); RED BLOOD COUNT 3.15 10*6/uL (4.10-5.10); RED CELL DISTRI WIDTH 18.4 % (0-14.5); WHITE BLOOD COUNT 3.9 10*3/uL (4.8-10.8)
[2023-07-13 14:37] LABS: POTASSIUM 3.4 mmol/L (3.4-5.1); TOTAL PROTEIN 7.1 gm/dL (6.0-8.0)
[2023-07-13 14:39] LABS: MANUAL DIFF REFLEX YES
[2023-07-13 14:43] LABS: BASOPHILS 1 % (0-1); PLATELET SUFFICIENCY LOW (NORMAL); TOTAL CELLS COUNTED 100 #CELLS
[2023-07-13 14:56] LABS: ACT PARTIAL THROMBO TIME 31.1 SECONDS (20.0-32.1)
[2023-07-13] MEDS ORDERED: TYLENOL EXTRA500 M2 PO (16:32)
== END 2023-07-13 17:40 | disposition home or self-care (01) ==
LOC: ED 13:35
PROVIDERS: Nurse Practitioner
DX: M25.551 Pain in right hip (principal); E11.9 Type 2 diabetes mellitus without complications; E78.5 Hyperlipidemia, unspecified; I11.0 Hypertensive heart disease with heart failure; I50.9 Heart failure, unspecified; Z88.5 Allergy status to narcotic agent; Z88.8 Allergy status to other drugs, medicaments and biological substances; Z79.899 Other long term (current) drug therapy; Z90.49 Acquired absence of other specified parts of digestive tract; Z96.651 Presence of right artificial knee joint; W18.39XA Other fall on same level, initial encounter; Y93.89 Activity, other specified; Y92.89 Other specified places as the place of occurrence of the external cause; Y99.8 Other external cause status

== ENCOUNTER → 2023-07-20 | Outpatient (CLI) | payer OTHER ==
[~2023-07-20] MED LIST changes: +TYLENOL EXTRA500 M2 PO
== END | disposition home or self-care (01) ==
LOC: WOUNDCARE 01:34
PROVIDERS: ATTEND Nurse Practitioner Family
DX: L97.822 Non-pressure chronic ulcer of other part of left lower leg with fat layer exposed (principal); L89.322 Pressure ulcer of left buttock, stage 2; L89.312 Pressure ulcer of right buttock, stage 2; R32 Unspecified urinary incontinence; I50.20 Unspecified systolic (congestive) heart failure; G62.9 Polyneuropathy, unspecified; Z86.718 Personal history of other venous thrombosis and embolism; Z90.710 Acquired absence of both cervix and uterus

== ENCOUNTER → 2023-07-30 | Outpatient (CLI) | payer OTHER | END | disposition home or self-care (01) | LOC: WOUNDCARE 04:16 | PROVIDERS: ATTEND Nurse Practitioner Family | DX: L97.822 Non-pressure chronic ulcer of other part of left lower leg with fat layer exposed (principal); L89.322 Pressure ulcer of left buttock, stage 2; L89.312 Pressure ulcer of right buttock, stage 2; R32 Unspecified urinary incontinence; I50.20 Unspecified systolic (congestive) heart failure; I50.9 Heart failure, unspecified; G62.9 Polyneuropathy, unspecified; Z86.718 Personal history of other venous thrombosis and embolism; Z90.710 Acquired absence of both cervix and uterus ==

== ENCOUNTER → 2023-08-13 | Outpatient (CLI) | payer OTHER | END | disposition home or self-care (01) | LOC: WOUNDCARE 00:16 | PROVIDERS: ATTEND Nurse Practitioner Family | DX: L97.822 Non-pressure chronic ulcer of other part of left lower leg with fat layer exposed (principal); L89.322 Pressure ulcer of left buttock, stage 2; L89.312 Pressure ulcer of right buttock, stage 2; R32 Unspecified urinary incontinence; I50.20 Unspecified systolic (congestive) heart failure; G62.9 Polyneuropathy, unspecified; Z90.710 Acquired absence of both cervix and uterus; Z86.718 Personal history of other venous thrombosis and embolism ==

== ENCOUNTER → 2023-08-31 | Outpatient (CLI) | payer OTHER ==
[2023-08-31 10:23] LABS: BILIRUBIN Negative (Negative); BLOOD 3+ (Negative); CLARITY Cloudy (Clear); COLOR Yellow (Yellow); GLUCOSE Negative (Negative); KETONE Negative (Negative); LEUKO ESTERASE 1+ (Negative); NITRITE Negative (Negative); PH 6.5 (4.5-8.0); UROBILINOGEN 0.2 E.U./dl (0.0-1.0)
[2023-08-31 10:30] LABS: URINE CREATININE RANDOM 58.63 mg/dL
[2023-08-31 10:34] LABS: BACTERIA 4+
[2023-08-31 10:35] LABS: EPITHELIAL CELLS 0-2; RBC TNTC rbc/hpf (0-2)
[2023-08-31 10:52] LABS: BUN 15 mg/dl (9-23); CHLORIDE 112 mmol/L (98-107); POTASSIUM 4.1 mmol/L (3.4-5.1)
[2023-08-31 11:21] LABS: VITAMIN D, 25-HYDROXY 25.5 ng/mL (30-100)
== END | disposition home or self-care (01) ==
LOC: LAB 09:56
PROVIDERS: ATTEND Internal Medicine Nephrology
DX: N18.30 Chronic kidney disease, stage 3 unspecified (principal); N25.81 Secondary hyperparathyroidism of renal origin; D63.1 Anemia in chronic kidney disease

== ENCOUNTER → 2023-09-04 | Outpatient (CLI) | payer OTHER ==
[2023-09-04 11:04] LABS: HEMATOCRIT 35.7 % (37.0-47.0); MEAN CELL VOLUME 108.8 fl (81.0-99.0); MEAN CORPUSCULAR HGB 31.4 pg (27.0-31.0); MEAN CORPUSCULAR HGB CONC 28.9 g/dl (33.0-37.0); MEAN PLATELET VOLUME 11.4 fl (9.6-12.3); PLATELET COUNT AUTOMATED 94 10*3/uL (130-400); RED BLOOD COUNT 3.28 10*6/uL (4.10-5.10); WHITE BLOOD COUNT 3.2 10*3/uL (4.8-10.8)
[2023-09-04 11:07] LABS: MANUAL DIFF REFLEX YES
[2023-09-04 11:39] LABS: ATYPICAL LYMPHS 1 % (0-0); PLATELET SUFFICIENCY LOW (NORMAL); TOTAL CELLS COUNTED 100 #CELLS
[2023-09-04 11:40] LABS: STOMATOCYTE FEW
[2023-09-04 11:41] LABS: POLYCHROMASIA SLIGHT
== END | disposition home or self-care (01) ==
LOC: LAB 10:24
PROVIDERS: ATTEND Internal Medicine Nephrology
DX: N18.30 Chronic kidney disease, stage 3 unspecified (principal); N25.81 Secondary hyperparathyroidism of renal origin; D63.1 Anemia in chronic kidney disease

== ENCOUNTER → 2023-09-11 | Outpatient (CLI) | payer OTHER | END | disposition home or self-care (01) | LOC: LAB 10:47 | PROVIDERS: ATTEND Nurse Practitioner Family | DX: N39.0 Urinary tract infection, site not specified (principal) ==

== ENCOUNTER → 2023-09-28 | Outpatient (CLI) | payer OTHER ==
[~2023-09-28] MED LIST changes: +IOHEXOL 350 MG/ML 100 ML VIAL IV ONE
[2023-10-01 13:21] LABS: THYROXINE (T4) TOTAL 8.5 ug/dl (4.5-10.9)
== END | disposition home or self-care (01) ==
LOC: LAB 01:40 → CT 01:40
PROVIDERS: Internal Medicine; ATTEND Urology
DX: N28.1 Cyst of kidney, acquired (principal); M16.11 Unilateral primary osteoarthritis, right hip; M43.17 Spondylolisthesis, lumbosacral region; Z90.710 Acquired absence of both cervix and uterus

== ENCOUNTER → 2023-11-08 | Outpatient (CLI) | payer OTHER ==
[~2023-11-08] MED LIST changes: -IOHEXOL 350 MG/ML 100 ML VIAL IV ONE
== END | disposition home or self-care (01) ==
LOC: WOUNDCARE 01:59
PROVIDERS: ATTEND Nurse Practitioner Family
DX: I83.018 Varicose veins of right lower extremity with ulcer other part of lower leg (principal); L97.812 Non-pressure chronic ulcer of other part of right lower leg with fat layer exposed; I83.892 Varicose veins of left lower extremity with other complications; I87.2 Venous insufficiency (chronic) (peripheral); I73.9 Peripheral vascular disease, unspecified; I50.9 Heart failure, unspecified; G62.9 Polyneuropathy, unspecified; M19.90 Unspecified osteoarthritis, unspecified site; Z86.718 Personal history of other venous thrombosis and embolism; Z96.651 Presence of right artificial knee joint; Z90.710 Acquired absence of both cervix and uterus; Z79.899 Other long term (current) drug therapy

== ENCOUNTER → 2023-11-14 | Outpatient (CLI) | payer OTHER | END | disposition home or self-care (01) | LOC: US 01:32 → WOUNDCARE 01:32 → US 08:30 | PROVIDERS: ATTEND Nurse Practitioner Family | DX: I83.018 Varicose veins of right lower extremity with ulcer other part of lower leg (principal); L97.812 Non-pressure chronic ulcer of other part of right lower leg with fat layer exposed; I83.892 Varicose veins of left lower extremity with other complications; I87.2 Venous insufficiency (chronic) (peripheral); I73.9 Peripheral vascular disease, unspecified; I50.9 Heart failure, unspecified; G62.9 Polyneuropathy, unspecified; M19.90 Unspecified osteoarthritis, unspecified site; Z86.718 Personal history of other venous thrombosis and embolism; Z96.651 Presence of right artificial knee joint; Z90.710 Acquired absence of both cervix and uterus; Z79.899 Other long term (current) drug therapy ==

== ENCOUNTER → 2023-11-26 | Outpatient (CLI) | payer OTHER | END | disposition home or self-care (01) | LOC: US 01:28 → WOUNDCARE 01:28 → US 09:00 | PROVIDERS: ATTEND Nurse Practitioner Family | DX: M77.31 Calcaneal spur, right foot (principal); R52 Pain, unspecified; R60.9 Edema, unspecified ==

== ENCOUNTER → 2024-01-08 | Outpatient (CLI) | payer OTHER ==
[2024-01-08 10:13] LABS: HEMATOCRIT 32.4 % (37.0-47.0); MEAN CELL VOLUME 109.1 fl (81.0-99.0); MEAN CORPUSCULAR HGB CONC 28.4 g/dl (33.0-37.0); MEAN PLATELET VOLUME 10.7 fl (9.6-12.3); PLATELET COUNT AUTOMATED 132 10*3/uL (130-400); RED BLOOD COUNT 2.97 10*6/uL (4.10-5.10); RED CELL DISTRI WIDTH 16.4 % (0-14.5); WHITE BLOOD COUNT 3.4 10*3/uL (4.8-10.8)
[2024-01-08 10:17] LABS: MANUAL DIFF REFLEX YES
[2024-01-08 10:37] LABS: TOTAL CELLS COUNTED 100 #CELLS
[2024-01-08 10:38] LABS: ALKALINE PHOSPHATASE 130 U/L (46-116); BUN 31 mg/dl (9-23); CHLORIDE 113 mmol/L (98-107); CHOLESTEROL 140 mg/dL (<200); LDL CHOLESTEROL 83 mg/dL (9-159); POTASSIUM 4.2 mmol/L (3.4-5.1); SGPT/ALT 12 U/L (5-49); THYROXINE (T4) TOTAL 6.6 ug/dl (4.5-10.9); TRIGLYCERIDES 106 mg/dl (<150)
[2024-01-08 10:39] LABS: PLATELET SUFFICIENCY NORMAL (NORMAL); POLYCHROMASIA SLIGHT; TARGET CELLS FEW
[2024-01-08 10:54] LABS: VITAMIN D, 25-HYDROXY 9.9 ng/mL (30-100)
== END | disposition home or self-care (01) ==
LOC: LAB 02:01
PROVIDERS: ATTEND Internal Medicine
DX: E11.9 Type 2 diabetes mellitus without complications (principal); R20.2 Paresthesia of skin; E78.5 Hyperlipidemia, unspecified; I50.32 Chronic diastolic (congestive) heart failure; D50.9 Iron deficiency anemia, unspecified; E55.9 Vitamin D deficiency, unspecified; E78.2 Mixed hyperlipidemia

== ENCOUNTER → 2024-01-23 | Outpatient (CLI) | payer OTHER | END | disposition home or self-care (01) | LOC: MAMMO 01:05 | PROVIDERS: ATTEND Internal Medicine | DX: Z12.31 Encounter for screening mammogram for malignant neoplasm of breast (principal) ==

== ENCOUNTER → 2024-02-01 | Outpatient (CLI) | payer OTHER | LOC: WOUNDCARE 03:09 | PROVIDERS: ATTEND Nurse Practitioner Family | DX: I83.018 Varicose veins of right lower extremity with ulcer other part of lower leg (principal); L97.812 Non-pressure chronic ulcer of other part of right lower leg with fat layer exposed; I83.028 Varicose veins of left lower extremity with ulcer other part of lower leg; L97.822 Non-pressure chronic ulcer of other part of left lower leg with fat layer exposed; I87.8 Other specified disorders of veins; I73.9 Peripheral vascular disease, unspecified; I50.9 Heart failure, unspecified; G62.9 Polyneuropathy, unspecified; Z86.718 Personal history of other venous thrombosis and embolism; Z90.710 Acquired absence of both cervix and uterus; Z96.651 Presence of right artificial knee joint; Z79.899 Other long term (current) drug therapy ==

== ENCOUNTER → 2024-02-15 | Outpatient (CLI) | payer OTHER | END | disposition home or self-care (01) | LOC: WOUNDCARE 01:13 | PROVIDERS: ATTEND Nurse Practitioner Family | DX: I83.028 Varicose veins of left lower extremity with ulcer other part of lower leg (principal); L97.822 Non-pressure chronic ulcer of other part of left lower leg with fat layer exposed; I87.2 Venous insufficiency (chronic) (peripheral); I73.9 Peripheral vascular disease, unspecified; I50.9 Heart failure, unspecified; G62.9 Polyneuropathy, unspecified; Z86.718 Personal history of other venous thrombosis and embolism; Z90.710 Acquired absence of both cervix and uterus; Z96.651 Presence of right artificial knee joint ==

== ENCOUNTER → 2024-03-04 | Outpatient (CLI) | payer OTHER ==
[2024-03-04 11:27] LABS: BILIRUBIN Negative (Negative); BLOOD 2+ (Negative); CLARITY Cloudy (Clear); COLOR Yellow (Yellow); GLUCOSE Negative (Negative); KETONE Negative (Negative); LEUKO ESTERASE 1+ (Negative); NITRITE Negative (Negative); SPECIFIC GRAVITY >= 1.030 (1.001-1.030); UROBILINOGEN 0.2 E.U./dl (0.0-1.0)
[2024-03-04 11:31] LABS: HEMATOCRIT 32.6 % (37.0-47.0); MANUAL DIFF REFLEX YES; MEAN CELL VOLUME 107.6 fl (81.0-99.0); MEAN CORPUSCULAR HGB CONC 27.9 g/dl (33.0-37.0); MEAN PLATELET VOLUME 11.7 fl (9.6-12.3); PLATELET COUNT AUTOMATED 97 10*3/uL (130-400); RED BLOOD COUNT 3.03 10*6/uL (4.10-5.10); RED CELL DISTRI WIDTH 16.3 % (0-14.5); WHITE BLOOD COUNT 2.9 10*3/uL (4.8-10.8)
[2024-03-04 11:45] LABS: URINE CREATININE RANDOM 155.91 mg/dL
[2024-03-04 11:50] LABS: BASOPHILS 1 % (0-1); BUN 9 mg/dl (9-23); CHLORIDE 113 mmol/L (98-107); POTASSIUM 3.4 mmol/L (3.4-5.1); TOTAL CELLS COUNTED 100 #CELLS
[2024-03-04 11:51] LABS: PLATELET SUFFICIENCY LOW (NORMAL); POLYCHROMASIA SLIGHT; ROULEAUX SLIGHT; SCHISTOCYTES FEW
[2024-03-04 11:53] LABS: VITAMIN D, 25-HYDROXY 19.9 ng/mL (30-100)
[2024-03-04 12:35] LABS: BACTERIA 2+; CALCIUM OXALATE CRYSTALS 3+; EPITHELIAL CELLS 51-100; RBC TNTC rbc/hpf (0-2); WBC 16-20 wbc/hpf (0-5)
== END | disposition home or self-care (01) ==
LOC: LAB 10:09
PROVIDERS: ATTEND Nurse Practitioner Family
DX: N18.30 Chronic kidney disease, stage 3 unspecified (principal); N39.0 Urinary tract infection, site not specified; E55.9 Vitamin D deficiency, unspecified; N25.81 Secondary hyperparathyroidism of renal origin; D63.1 Anemia in chronic kidney disease

== ENCOUNTER → 2024-03-26 | Outpatient (CLI) | payer OTHER ==
[~2024-03-26] MED LIST changes: +Regadenoson 0.4 MG/5 ML SYR IV ONE
[2024-03-26 09:17] LABS: MANUAL DIFF REFLEX YES; MEAN CELL VOLUME 104.6 fl (81.0-99.0); MEAN CORPUSCULAR HGB 29.5 pg (27.0-31.0); MEAN CORPUSCULAR HGB CONC 28.2 g/dl (33.0-37.0); MEAN PLATELET VOLUME 11.9 fl (9.6-12.3); PLATELET COUNT AUTOMATED 90 10*3/uL (130-400); RED BLOOD COUNT 3.25 10*6/uL (4.10-5.10); RED CELL DISTRI WIDTH 16.6 % (0-14.5); WHITE BLOOD COUNT 2.8 10*3/uL (4.8-10.8)
[2024-03-26 09:41] LABS: POTASSIUM 3.9 mmol/L (3.4-5.1)
[2024-03-26 09:47] LABS: ALKALINE PHOSPHATASE 135 U/L (46-116); BUN 20 mg/dl (9-23); CHLORIDE 114 mmol/L (98-107); FREE T4 1.61 ng/dl (0.89-1.76); POTASSIUM 3.9 mmol/L (3.4-5.1); SGPT/ALT 11 U/L (5-49); TOTAL CELLS COUNTED 100 #CELLS
[2024-03-26 09:48] LABS: OVALOCYTES FEW; PLATELET SUFFICIENCY LOW (NORMAL); POLYCHROMASIA SLIGHT
[2024-03-26 09:49] LABS: STOMATOCYTE FEW
== END | disposition home or self-care (01) ==
LOC: CARD 00:58
PROVIDERS: Internal Medicine; ATTEND Internal Medicine Cardiovascular Disease
DX: I20.9 Angina pectoris, unspecified (principal); R06.00 Dyspnea, unspecified

== ENCOUNTER → 2024-04-21 | Outpatient (CLI) | payer OTHER ==
[~2024-04-21] MED LIST changes: -Regadenoson 0.4 MG/5 ML SYR IV ONE
[2024-04-21 10:43] LABS: BILIRUBIN Negative (Negative); BLOOD 3+ (Negative); CLARITY Cloudy (Clear); COLOR Yellow (Yellow); GLUCOSE Negative (Negative); KETONE Trace (Negative); LEUKO ESTERASE 1+ (Negative); NITRITE Negative (Negative); PH 5.5 (4.5-8.0); SPECIFIC GRAVITY >= 1.030 (1.001-1.030); UROBILINOGEN 0.2 E.U./dl (0.0-1.0)
[2024-04-21 10:51] LABS: POTASSIUM 3.5 mmol/L (3.4-5.1)
[2024-04-21 11:13] LABS: BACTERIA 3+; RBC TNTC rbc/hpf (0-2); WBC 21-30 wbc/hpf (0-5)
== END | disposition home or self-care (01) ==
LOC: LAB 09:47
PROVIDERS: ATTEND Nurse Practitioner Family
DX: N18.30 Chronic kidney disease, stage 3 unspecified (principal); Z79.899 Other long term (current) drug therapy

== ENCOUNTER → 2024-06-23 | Outpatient (CLI) | payer OTHER | END | disposition home or self-care (01) | LOC: US 02:41 | PROVIDERS: ATTEND Nurse Practitioner Family | DX: N18.30 Chronic kidney disease, stage 3 unspecified (principal); N32.89 Other specified disorders of bladder ==

== ENCOUNTER → 2024-07-24 | Outpatient (CLI) | payer OTHER | END | disposition home or self-care (01) | LOC: CT 07-17 00:16 | PROVIDERS: ATTEND Urology | DX: R31.29 Other microscopic hematuria (principal) ==

== ENCOUNTER → 2024-08-21 | Outpatient (CLI) | payer OTHER | END | disposition home or self-care (01) | LOC: CT 10:00 | PROVIDERS: ATTEND Urology | DX: I67.82 Cerebral ischemia (principal); M47.816 Spondylosis without myelopathy or radiculopathy, lumbar region; R31.0 Gross hematuria; N18.31 Chronic kidney disease, stage 3a; R31.29 Other microscopic hematuria; R42 Dizziness and giddiness; Z90.49 Acquired absence of other specified parts of digestive tract ==

== ENCOUNTER → 2024-09-29 | Outpatient (CLI) | payer OTHER | END | disposition home or self-care (01) | LOC: ORTHO 01:09 | PROVIDERS: ATTEND Orthopaedic Surgery | DX: M17.12 Unilateral primary osteoarthritis, left knee (principal); M25.762 Osteophyte, left knee; M25.561 Pain in right knee; M25.562 Pain in left knee ==

== ENCOUNTER → 2024-10-03 | Outpatient (CLI) | payer OTHER | LOC: WOUNDCARE 01:02 | PROVIDERS: ATTEND Nurse Practitioner Family | DX: S81.811A Laceration without foreign body, right lower leg, initial encounter (principal); R60.9 Edema, unspecified; I87.2 Venous insufficiency (chronic) (peripheral); I73.9 Peripheral vascular disease, unspecified; I83.009 Varicose veins of unspecified lower extremity with ulcer of unspecified site; I50.9 Heart failure, unspecified; Z90.710 Acquired absence of both cervix and uterus; Z98.890 Other specified postprocedural states; Z79.899 Other long term (current) drug therapy; Z86.718 Personal history of other venous thrombosis and embolism; X58.XXXA Exposure to other specified factors, initial encounter; Y93.89 Activity, other specified; Y92.89 Other specified places as the place of occurrence of the external cause; Y99.8 Other external cause status ==

== ENCOUNTER → 2024-10-10 | Outpatient (CLI) | payer OTHER | LOC: WOUNDCARE 00:39 | PROVIDERS: ATTEND Nurse Practitioner Family | DX: S81.811D Laceration without foreign body, right lower leg, subsequent encounter (principal); I87.2 Venous insufficiency (chronic) (peripheral); I83.009 Varicose veins of unspecified lower extremity with ulcer of unspecified site; I50.9 Heart failure, unspecified; I73.9 Peripheral vascular disease, unspecified; Z86.718 Personal history of other venous thrombosis and embolism; Z90.710 Acquired absence of both cervix and uterus; Z98.890 Other specified postprocedural states; Z79.899 Other long term (current) drug therapy; X58.XXXD Exposure to other specified factors, subsequent encounter ==

== ENCOUNTER → 2024-10-17 | Outpatient (CLI) | payer OTHER | END | disposition home or self-care (01) | LOC: WOUNDCARE 00:32 | PROVIDERS: ATTEND Nurse Practitioner Family | DX: S81.811D Laceration without foreign body, right lower leg, subsequent encounter (principal); I87.2 Venous insufficiency (chronic) (peripheral); I83.009 Varicose veins of unspecified lower extremity with ulcer of unspecified site; I73.9 Peripheral vascular disease, unspecified; I50.9 Heart failure, unspecified; Z86.718 Personal history of other venous thrombosis and embolism; Z90.710 Acquired absence of both cervix and uterus; Z98.890 Other specified postprocedural states; Z79.899 Other long term (current) drug therapy; X58.XXXD Exposure to other specified factors, subsequent encounter ==

== ENCOUNTER → 2024-10-24 | Outpatient (CLI) | payer OTHER | LOC: WOUNDCARE 02:33 | PROVIDERS: ATTEND Nurse Practitioner Family | DX: S81.811D Laceration without foreign body, right lower leg, subsequent encounter (principal); I83.018 Varicose veins of right lower extremity with ulcer other part of lower leg; L97.511 Non-pressure chronic ulcer of other part of right foot limited to breakdown of skin; I87.2 Venous insufficiency (chronic) (peripheral); I73.9 Peripheral vascular disease, unspecified; I50.9 Heart failure, unspecified; G62.9 Polyneuropathy, unspecified; Z90.710 Acquired absence of both cervix and uterus; Z86.718 Personal history of other venous thrombosis and embolism; Z98.890 Other specified postprocedural states; Z79.899 Other long term (current) drug therapy; X58.XXXD Exposure to other specified factors, subsequent encounter ==

== ENCOUNTER → 2024-11-07 | Outpatient (CLI) | payer OTHER | END | disposition home or self-care (01) | LOC: WOUNDCARE 00:52 → RAD 01:28 → WOUNDCARE 05:36 | PROVIDERS: ATTEND Nurse Practitioner Family | DX: S81.811D Laceration without foreign body, right lower leg, subsequent encounter (principal); I87.2 Venous insufficiency (chronic) (peripheral); I50.9 Heart failure, unspecified; I73.9 Peripheral vascular disease, unspecified; G62.9 Polyneuropathy, unspecified; Z86.718 Personal history of other venous thrombosis and embolism; Z90.710 Acquired absence of both cervix and uterus; Z98.890 Other specified postprocedural states; Z79.899 Other long term (current) drug therapy; X58.XXXD Exposure to other specified factors, subsequent encounter ==

== ENCOUNTER → 2024-11-14 | Outpatient (CLI) | payer OTHER | LOC: WOUNDCARE 00:19 | PROVIDERS: ATTEND Nurse Practitioner Family | DX: S81.811D Laceration without foreign body, right lower leg, subsequent encounter (principal); S81.812D Laceration without foreign body, left lower leg, subsequent encounter; I83.009 Varicose veins of unspecified lower extremity with ulcer of unspecified site; I87.2 Venous insufficiency (chronic) (peripheral); I73.9 Peripheral vascular disease, unspecified; R60.9 Edema, unspecified; I50.9 Heart failure, unspecified; G62.9 Polyneuropathy, unspecified; Z90.710 Acquired absence of both cervix and uterus; Z98.890 Other specified postprocedural states; Z79.899 Other long term (current) drug therapy; Z86.718 Personal history of other venous thrombosis and embolism; X58.XXXD Exposure to other specified factors, subsequent encounter ==

== ENCOUNTER → 2024-12-01 | Outpatient (CLI) | payer OTHER | END | disposition home or self-care (01) | LOC: WOUNDCARE 03:12 | PROVIDERS: ATTEND Nurse Practitioner Family | DX: S81.811D Laceration without foreign body, right lower leg, subsequent encounter (principal); S81.812D Laceration without foreign body, left lower leg, subsequent encounter; S91.302D Unspecified open wound, left foot, subsequent encounter; R60.9 Edema, unspecified; I87.2 Venous insufficiency (chronic) (peripheral); I73.9 Peripheral vascular disease, unspecified; I50.9 Heart failure, unspecified; G62.9 Polyneuropathy, unspecified; Z86.718 Personal history of other venous thrombosis and embolism; Z90.710 Acquired absence of both cervix and uterus; Z98.890 Other specified postprocedural states; Z79.899 Other long term (current) drug therapy; X58.XXXD Exposure to other specified factors, subsequent encounter ==

== ENCOUNTER → 2024-12-08 | Outpatient (CLI) | payer OTHER | END | disposition home or self-care (01) | LOC: WOUNDCARE 01:28 | PROVIDERS: ATTEND Nurse Practitioner Family | DX: S81.811D Laceration without foreign body, right lower leg, subsequent encounter (principal); S81.812D Laceration without foreign body, left lower leg, subsequent encounter; R60.9 Edema, unspecified; I83.009 Varicose veins of unspecified lower extremity with ulcer of unspecified site; I87.2 Venous insufficiency (chronic) (peripheral); I73.9 Peripheral vascular disease, unspecified; I50.9 Heart failure, unspecified; G62.9 Polyneuropathy, unspecified; Z90.710 Acquired absence of both cervix and uterus; Z96.612 Presence of left artificial shoulder joint; Z96.611 Presence of right artificial shoulder joint; Z96.651 Presence of right artificial knee joint; Z98.890 Other specified postprocedural states; Z79.899 Other long term (current) drug therapy; Z86.718 Personal history of other venous thrombosis and embolism; X58.XXXD Exposure to other specified factors, subsequent encounter ==

== ENCOUNTER → 2024-12-16 | Outpatient (CLI) | payer OTHER | END | disposition home or self-care (01) | LOC: WOUNDCARE 00:39 | PROVIDERS: ATTEND Nurse Practitioner Family | DX: S81.811D Laceration without foreign body, right lower leg, subsequent encounter (principal); S81.812D Laceration without foreign body, left lower leg, subsequent encounter; I83.009 Varicose veins of unspecified lower extremity with ulcer of unspecified site; I73.9 Peripheral vascular disease, unspecified; I50.9 Heart failure, unspecified; G62.9 Polyneuropathy, unspecified; Z90.710 Acquired absence of both cervix and uterus; Z86.718 Personal history of other venous thrombosis and embolism; X58.XXXD Exposure to other specified factors, subsequent encounter ==

== ENCOUNTER → 2024-12-23 | Outpatient (CLI) | payer OTHER | END | disposition home or self-care (01) | LOC: WOUNDCARE 04:15 | PROVIDERS: ATTEND Nurse Practitioner Family | DX: S81.811D Laceration without foreign body, right lower leg, subsequent encounter (principal); S81.812D Laceration without foreign body, left lower leg, subsequent encounter; I83.018 Varicose veins of right lower extremity with ulcer other part of lower leg; L97.811 Non-pressure chronic ulcer of other part of right lower leg limited to breakdown of skin; I73.9 Peripheral vascular disease, unspecified; I50.9 Heart failure, unspecified; G62.9 Polyneuropathy, unspecified; Z86.718 Personal history of other venous thrombosis and embolism; Z90.710 Acquired absence of both cervix and uterus; Z98.890 Other specified postprocedural states; X58.XXXD Exposure to other specified factors, subsequent encounter; Z79.899 Other long term (current) drug therapy ==

== ENCOUNTER → 2025-01-06 | Outpatient (CLI) | payer OTHER | END | disposition home or self-care (01) | LOC: WOUNDCARE 01:33 | PROVIDERS: ATTEND Nurse Practitioner Family | DX: S81.811D Laceration without foreign body, right lower leg, subsequent encounter (principal); S81.812D Laceration without foreign body, left lower leg, subsequent encounter; I83.018 Varicose veins of right lower extremity with ulcer other part of lower leg; L97.812 Non-pressure chronic ulcer of other part of right lower leg with fat layer exposed; I87.2 Venous insufficiency (chronic) (peripheral); I73.9 Peripheral vascular disease, unspecified; I50.9 Heart failure, unspecified; G62.9 Polyneuropathy, unspecified; Z86.718 Personal history of other venous thrombosis and embolism; Z90.710 Acquired absence of both cervix and uterus; Z96.651 Presence of right artificial knee joint; Z98.890 Other specified postprocedural states; Z79.899 Other long term (current) drug therapy; X58.XXXD Exposure to other specified factors, subsequent encounter ==

== ENCOUNTER → 2025-01-14 | Outpatient (CLI) | payer OTHER | END | disposition home or self-care (01) | LOC: WOUNDCARE 01:10 | PROVIDERS: ATTEND Nurse Practitioner Family | DX: S81.811D Laceration without foreign body, right lower leg, subsequent encounter (principal); S81.812D Laceration without foreign body, left lower leg, subsequent encounter; I83.018 Varicose veins of right lower extremity with ulcer other part of lower leg; L97.811 Non-pressure chronic ulcer of other part of right lower leg limited to breakdown of skin; R60.9 Edema, unspecified; I87.2 Venous insufficiency (chronic) (peripheral); I11.0 Hypertensive heart disease with heart failure; I50.9 Heart failure, unspecified; I73.9 Peripheral vascular disease, unspecified; G60.9 Hereditary and idiopathic neuropathy, unspecified; Z86.718 Personal history of other venous thrombosis and embolism; Z90.710 Acquired absence of both cervix and uterus; Z98.890 Other specified postprocedural states; X58.XXXD Exposure to other specified factors, subsequent encounter ==

== ENCOUNTER → 2025-01-26 | Outpatient (CLI) | payer OTHER | END | disposition home or self-care (01) | LOC: WOUNDCARE 01:27 | PROVIDERS: ATTEND Nurse Practitioner Family | DX: S81.811D Laceration without foreign body, right lower leg, subsequent encounter (principal); S81.812D Laceration without foreign body, left lower leg, subsequent encounter; R60.9 Edema, unspecified; I83.009 Varicose veins of unspecified lower extremity with ulcer of unspecified site; I87.2 Venous insufficiency (chronic) (peripheral); I73.9 Peripheral vascular disease, unspecified; I50.9 Heart failure, unspecified; G62.9 Polyneuropathy, unspecified; Z86.718 Personal history of other venous thrombosis and embolism; Z86.16 Personal history of COVID-19; Z90.710 Acquired absence of both cervix and uterus; Z96.651 Presence of right artificial knee joint; Z98.890 Other specified postprocedural states; Z79.899 Other long term (current) drug therapy; X58.XXXD Exposure to other specified factors, subsequent encounter ==

== ENCOUNTER → 2025-02-16 | Outpatient (CLI) | payer OTHER | LOC: WOUNDCARE 01:55 | PROVIDERS: ATTEND Nurse Practitioner Family | DX: Z53.21 Procedure and treatment not carried out due to patient leaving prior to being seen by health care provider (principal) ==

== ENCOUNTER → 2025-02-17 | Outpatient (CLI) | payer OTHER ==
[2025-02-17 10:42] LABS: BILIRUBIN Negative (Negative); BLOOD 3+ (Negative); CLARITY Clear (Clear); COLOR Yellow (Yellow); KETONE Trace (Negative); LEUKO ESTERASE Trace (Negative); NITRITE Negative (Negative); PH 5.5 (4.5-8.0); SPECIFIC GRAVITY >= 1.030 (1.001-1.030); UROBILINOGEN 0.2 E.U./dl (0.0-1.0)
[2025-02-17 10:44] LABS: MEAN CELL VOLUME 105.3 fl (81.0-99.0); MEAN CORPUSCULAR HGB 29.8 pg (27.0-31.0); MEAN PLATELET VOLUME 10.4 fl (9.6-12.3); NUCLEATED RED BLOOD CELL 0.0 % (0.0-0.0); NUCLEATED RED BLOOD CELL 0.0 10*3/uL (0.0-0.0); PLATELET COUNT AUTOMATED 87 10*3/uL (130-400); RED CELL DISTRI WIDTH 18.4 % (0-14.5)
[2025-02-17 10:48] LABS: MANUAL DIFF REFLEX YES
[2025-02-17 11:05] LABS: BUN 16 mg/dl (9-23)
[2025-02-17 11:06] LABS: PLATELET SUFFICIENCY LOW (NORMAL)
[2025-02-17 11:09] LABS: LDL CHOLESTEROL 70 mg/dL (9-159); SGPT/ALT 11 U/L (5-49); THYROXINE (T4) TOTAL 9.5 ug/dl (4.5-10.9)
[2025-02-17 11:17] LABS: BACTERIA 4+; MUCOUS TRACE; RBC TNTC rbc/hpf (0-2)
[2025-02-17 11:37] LABS: VITAMIN D, 25-HYDROXY 30.0 ng/mL (30-100)
== END | disposition home or self-care (01) ==
LOC: WOUNDCARE 02:56 → LAB 02:56
PROVIDERS: Internal Medicine; Internal Medicine Nephrology; Nurse Practitioner Family; ATTEND Nurse Practitioner Family
DX: I83.028 Varicose veins of left lower extremity with ulcer other part of lower leg (principal); L97.821 Non-pressure chronic ulcer of other part of left lower leg limited to breakdown of skin; S81.801A Unspecified open wound, right lower leg, initial encounter; R80.9 Proteinuria, unspecified; I87.2 Venous insufficiency (chronic) (peripheral); I73.9 Peripheral vascular disease, unspecified; I50.9 Heart failure, unspecified; G62.9 Polyneuropathy, unspecified; R73.09 Other abnormal glucose; E55.9 Vitamin D deficiency, unspecified; Z96.651 Presence of right artificial knee joint; Z90.710 Acquired absence of both cervix and uterus; Z86.718 Personal history of other venous thrombosis and embolism; X58.XXXA Exposure to other specified factors, initial encounter; Y93.89 Activity, other specified; Y92.89 Other specified places as the place of occurrence of the external cause; Y99.8 Other external cause status

== ENCOUNTER → 2025-02-20 | Outpatient (CLI) | payer OTHER | END | disposition home or self-care (01) | LOC: LAB 00:07 → WOUNDCARE 11:13 → LAB 13:40 | PROVIDERS: ATTEND Nurse Practitioner Family | DX: I83.028 Varicose veins of left lower extremity with ulcer other part of lower leg (principal); L97.822 Non-pressure chronic ulcer of other part of left lower leg with fat layer exposed; S81.801D Unspecified open wound, right lower leg, subsequent encounter; I87.2 Venous insufficiency (chronic) (peripheral); I73.9 Peripheral vascular disease, unspecified; R80.9 Proteinuria, unspecified; I50.9 Heart failure, unspecified; G62.9 Polyneuropathy, unspecified; Z86.718 Personal history of other venous thrombosis and embolism; Z90.710 Acquired absence of both cervix and uterus; Z96.651 Presence of right artificial knee joint; X58.XXXD Exposure to other specified factors, subsequent encounter ==

== ENCOUNTER → 2025-03-05 | Outpatient (CLI) | payer OTHER | END | disposition home or self-care (01) | LOC: WOUNDCARE 01:23 | PROVIDERS: ATTEND Nurse Practitioner Family | DX: I83.028 Varicose veins of left lower extremity with ulcer other part of lower leg (principal); L97.822 Non-pressure chronic ulcer of other part of left lower leg with fat layer exposed; S81.801D Unspecified open wound, right lower leg, subsequent encounter; R21 Rash and other nonspecific skin eruption; R60.9 Edema, unspecified; I73.9 Peripheral vascular disease, unspecified; Z86.718 Personal history of other venous thrombosis and embolism; I50.9 Heart failure, unspecified; Z90.710 Acquired absence of both cervix and uterus; Z96.612 Presence of left artificial shoulder joint; Z96.651 Presence of right artificial knee joint; Z98.890 Other specified postprocedural states ==

== ENCOUNTER → 2025-03-18 | Outpatient (CLI) | payer OTHER | END | disposition home or self-care (01) | LOC: WOUNDCARE 02:18 | PROVIDERS: ATTEND Nurse Practitioner Family | DX: I83.028 Varicose veins of left lower extremity with ulcer other part of lower leg (principal); L97.822 Non-pressure chronic ulcer of other part of left lower leg with fat layer exposed; I87.2 Venous insufficiency (chronic) (peripheral); S81.801D Unspecified open wound, right lower leg, subsequent encounter; R21 Rash and other nonspecific skin eruption; I73.9 Peripheral vascular disease, unspecified; I11.0 Hypertensive heart disease with heart failure; I50.9 Heart failure, unspecified; G62.9 Polyneuropathy, unspecified; Z90.710 Acquired absence of both cervix and uterus; Z98.890 Other specified postprocedural states; Z79.899 Other long term (current) drug therapy; X58.XXXD Exposure to other specified factors, subsequent encounter ==

== ENCOUNTER → 2025-05-11 | Outpatient (CLI) | payer OTHER ==
[2025-05-11 12:49] LABS: BILIRUBIN Negative (Negative); BLOOD 3+ (Negative); CLARITY Cloudy (Clear); COLOR Yellow (Yellow); KETONE Negative (Negative); LEUKO ESTERASE 2+ (Negative); NITRITE Negative (Negative); PH 6.0 (4.5-8.0); SPECIFIC GRAVITY 1.025 (1.001-1.030); UROBILINOGEN 1.0 E.U./dl (0.0-1.0)
[2025-05-11 12:50] LABS: MEAN CELL VOLUME 105.8 fl (81.0-99.0); MEAN CORPUSCULAR HGB 29.8 pg (27.0-31.0); MEAN PLATELET VOLUME 11.0 fl (9.6-12.3); NUCLEATED RED BLOOD CELL 0.0 % (0.0-0.0); NUCLEATED RED BLOOD CELL 0.0 10*3/uL (0.0-0.0); PLATELET COUNT AUTOMATED 100 10*3/uL (130-400); RED CELL DISTRI WIDTH 17.4 % (0-14.5)
[2025-05-11 12:57] LABS: BACTERIA 2+
[2025-05-11 13:10] LABS: BUN 25.0 mg/dl (9-23)
[2025-05-11 13:14] LABS: VITAMIN D, 25-HYDROXY 19.2 ng/mL (30-100)
[2025-05-11 13:16] LABS: MANUAL DIFF REFLEX YES
[2025-05-11 13:21] LABS: BASOPHILS 2 % (0-1); PLATELET SUFFICIENCY LOW (NORMAL)
[2025-05-11 13:23] LABS: STOMATOCYTE FEW
== END | disposition home or self-care (01) ==
LOC: LAB 12:02
PROVIDERS: ATTEND Nurse Practitioner Family
DX: N25.81 Secondary hyperparathyroidism of renal origin (principal); N18.30 Chronic kidney disease, stage 3 unspecified; R80.9 Proteinuria, unspecified; E55.9 Vitamin D deficiency, unspecified; D63.1 Anemia in chronic kidney disease